=== PATIENT | female | born 1975 | race Caucasian/White ===

== ENCOUNTER 2016-08-31 10:43 | Emergency (ER) | payer SELFPAY ==
[~2016-08-31] VITALS: Ht 149.9 cm; Wt 54.0 kg
[2016-08-31 10:50] VITALS: BP 134/55; PULSE 84; RESP 16; TEMP 97.9; O2SAT 100
[2016-08-31] MEDS ORDERED: SODIUM CHLORIDE 0.9% FLUSH 5 ML FLUSH IVF PRN (11:00)
--- NOTE | 2016-08-31 11:07 | PD ---
HPI Chief Complaint: Abdominal Pain Time Seen by Provider: 11:05 Travel History International Travel<30 days: No Contact w/Intl Traveler<30days: No Traveled to known affect area: No History of Present Illness HPI 41-year-old female with history of endometriosis and chronic pelvic pains, presents to the ER today for several days history of lower abdominal pains. She states that she has been nauseous without vomiting, fevers, diarrhea, urinary symptoms, vaginal discharge, or any other symptoms. She had gone to urgent care and they had palpated a right lower quadrant pain and Center in for further evaluation. Pain is currently a 10 out of 10, worse with movement. Modifying Factors: None Associated Signs & Symptoms: Pelvic pain worse on the right than the left Risk Factors: Endometriosis PFSH Past Medical History ?: Unknown Social History Tobacco Use: No Allergies-Medications (Allergen,Severity, Reaction): Coded Allergies: No Known Allergies (Unverified , 08/31/16) Review of Systems Except as stated in HPI: all other systems reviewed are Neg Physical Exam Narrative GENERAL: Well-nourished, well-developed middle age white female patient in no acute distress. SKIN: Warm and dry. HEAD: Normocephalic. EYES: No scleral icterus. No injection or drainage. NECK: Supple, trachea midline. CARDIOVASCULAR: Regular rate and rhythm without murmurs, gallops, or rubs. RESPIRATORY: Breath sounds equal bilaterally. No accessory muscle use. GASTROINTESTINAL: Abdomen soft, pelvic tenderness with point tenderness in the right pelvic area without guarding or rebound, nondistended. MUSCULOSKELETAL: No cyanosis, or edema. BACK: Nontender without obvious deformity. No CVA tenderness. Data Data Last Documented VS Vital Signs Date Time Temp Pulse Resp B/P Pulse Ox O2 Delivery O2 Flow Rate FiO2 08/31/16 13:17 16 08/31/16 11:43 100 Room Air 08/31/16 10:50 97.9 84 134/55 Orders Urinalysis - C+S If Indicated (08/31/16 10:48) Ed Urine Pregnancytest Poc (08/31/16 10:48) Complete Blood Count With Diff (08/31/16 10:59) Comprehensive Metabolic Panel (08/31/16 10:59) Lipase (08/31/16 10:59) Ct Abd/Pel W Iv Contrast(Rout) (08/31/16 10:59) Iv Access Insert/Monitor (08/31/16 10:59) Ecg Monitoring (08/31/16 10:59) Oximetry (08/31/16 10:59) Sodium Chloride 0.9% Flush (Ns Flush) (08/31/16 11:00) Gc And Chlamydia Pcr (08/31/16 11:45) Wet Prep Profile (08/31/16 11:45) Metronidazole (Flagyl) (08/31/16 11:45) Ceftriaxone Inj (Rocephin Inj) (08/31/16 11:45) Azithromycin Powd Pack (Zithromax Powd P (08/31/16 11:45) Ketorolac Inj (Toradol Inj) (08/31/16 11:45) Iohexol 350 Inj (Omnipaque 350 Inj) (08/31/16 12:15) Labs Laboratory Tests Test 08/31/16 08/31/16 08/31/16 11:00 11:10 11:40 Urine Collection Type CLEAN CATCH Urine Color YELLOW Urine Turbidity CLEAR Urine pH 6.0 Urine Specific Elizabeth 1.003 Urine Protein NEG mg/dL Urine Glucose (UA) NEG mg/dL Urine Ketones NEG mg/dL Urine Occult Blood TRACE Urine Nitrite NEG Urine Bilirubin NEG Urine Leukocyte Esterase NEG Urine RBC 0-3 /hpf Urine Squamous Epithelial 0-5 /hpf Cells Microscopic Urinalysis Comment CULT NOT INDICATED Urine Collection Time 11:00 White Blood Count 6.6 TH/MM3 Red Blood Count 4.90 MIL/MM3 Hemoglobin 14.1 GM/DL Hematocrit 42.0 % Mean Corpuscular Volume 85.8 FL Mean Corpuscular Hemoglobin 28.9 PG Mean Corpuscular Hemoglobin 33.7 % Concent Red Cell Distribution Width 12.0 % Platelet Count 264 TH/MM3 Mean Platelet Volume 8.7 FL Neutrophils (%) (Auto) 71.8 % Lymphocytes (%) (Auto) 19.8 % Monocytes (%) (Auto) 5.5 % Eosinophils (%) (Auto) 0.9 % Basophils (%) (Auto) 2.0 % Neutrophils # (Auto) 4.7 TH/MM3 Lymphocytes # (Auto) 1.3 TH/MM3 Monocytes # (Auto) 0.4 TH/MM3 Eosinophils # (Auto) 0.1 TH/MM3 Basophils # (Auto) 0.1 TH/MM3 CBC Comment DIFF FINAL Differential Comment Sodium Level 143 MEQ/L Potassium Level 4.4 MEQ/L Chloride Level 106 MEQ/L Carbon Dioxide Level 26.8 MEQ/L Anion Gap 10 MEQ/L Blood Urea Nitrogen 11 MG/DL Creatinine 0.74 MG/DL Estimat Glomerular Filtration 87 ML/MIN Rate Random Glucose 87 MG/DL Calcium Level 8.7 MG/DL Total Bilirubin 0.6 MG/DL Aspartate Amino Transf 25 U/L (AST/SGOT) Alanine Aminotransferase 33 U/L (ALT/SGPT) Alkaline Phosphatase 79 U/L Total Protein 7.4 GM/DL Albumin 4.6 GM/DL Lipase 158 U/L Clue Cells (Wet Prep) NONE SEEN Vaginal Trichomonas (Wet Prep) NONE SEEN Vaginal Yeast (Wet Prep) NONE SEEN MDM Medical Decision Making Medical Screen Exam Complete: Yes Emergency Medical Condition: Yes Medical Record Reviewed: Yes Interpretation(s) Laboratory Tests Test 08/31/16 08/31/16 11:00 11:10 Urine Occult Blood TRACE (NEG) Neutrophils (%) (Auto) 71.8 % (16.0-70.0) Estimat Glomerular Filtration 87 ML/MIN (>89) Rate Last 24 hours Impressions Abdomen/Pelvis CT 08/31/16 1059 Signed Impressions: Service Date/Time: Wednesday, August 31, 2016 12:08 - CONCLUSION: 1. Bilateral complex cystic adnexal masses measuring 6.6 x 5.0 x 5.4 cm on the right and 5.4 x 2.5 x 5.5 cm on the left. 2. Enlarged fibroid uterus. 3. Right adrenal nodule measuring 1.2 x 1.6 cm consistent with probable adrenal adenoma. Kevin Dejesus MD Differential Diagnosis Right lower quadrant/pelvic painsacute on chronic abdominal pain versus PID/ cervicitis versus UTI versus endometriosis related pain versus appendicitis versus renal colic Narrative Course Lab work did not indicate any significant metabolic issues or infections. Wet prep is negative. GC is pending. Pelvic exam was equivocal and IV and by mouth antibiotics for possible underlying cervicitis were given as precaution. CT shows bilateral adnexal masses and uterine fibroid. Patient has long- standing history of chronic pelvic pain as well as endometriosis and I suspect that this is related to that diagnosis. However, after discussions with the radiologist reading the film, we cannot determine whether this is a new issue. However, there does not appear to be any signs of acute intra-abdominal process such as appendicitis. At this point, patient does not have an acute abdomen and I suspect that symptoms may be related to her previous diagnosis of chronic pelvic pain secondary to endometriosis. The bilateral adnexal abnormalities will need to be further evaluated with RAD TECH and further ultrasound may be needed to further evaluate these areas on an outpatient basis. My plan would be to give her symptomatic relief or pain and follow-up with primary RAD TECH. Return for any worsening in symptoms as needed. The plan has been discussed with her and she states understanding. Diagnosis Primary Impression: PELVIC AND PERINEAL PAIN Med/Other Pt SpecificInfo: Prescription(s) given Scripts Hydrocodone-Acetaminophen (Lortab)5-325 Mg Tab1-2 Tab PO Q6H PRN (PAIN) #12 TAB Ref 0 Prov:Yuri Avalos MD 08/31/16 Ibuprofen (Motrin Ib)200 Mg Fmp408 Mg PO Q6H PRN (PAIN SCALE 1 TO 10) #20 TAB Ref 0 Prov:Yuri Avalos MD 08/31/16 Disposition: 01 DISCHARGE HOME Condition: Stable Yuri Avalos MD Aug 31, 2016 11:07
[2016-08-31 11:20] LABS: BLOOD, URINE TRACE (NEG); GLUCOSE,URINE NEG (NEG); KETONE, URINE NEG (NEG); NITRITE,URINE NEG (NEG)
[2016-08-31 11:25] LABS: AUTOMATED NEUTROPHIL # 4.7 TH/MM3 (1.8-7.7); BASOPHIL # 0.1 TH/MM3 (0-0.2); EOSINOPHIL # 0.1 TH/MM3 (0-0.4); EOSINOPHIL % 0.9 % (0.0-4.0); HEMO FLAGS DIFF FINAL; LYMPH % 19.8 % (9.0-44.0); LYMPHOCYTE # 1.3 TH/MM3 (1.0-4.8); MEAN CELL VOLUME 85.8 FL (80.0-100.0); MEAN CORPUSCULAR HEMOGLOBIN 28.9 PG (27.0-34.0); MEAN CORPUSCULAR HGB CONC 33.7 % (32.0-36.0); MONO % 5.5 % (0.0-8.0); NEUT % 71.8 % (16.0-70.0); PLATELET COUNT 264 TH/MM3 (150-450); WHITE BLOOD COUNT 6.6 TH/MM3 (4.0-11.0)
[2016-08-31 11:31] LABS: METHOD OF COLLECTION CLEAN CATCH; URINE COLOR YELLOW (YELLW/STRAW)
[2016-08-31 11:32] LABS: COMMENT (UR) CULT NOT INDICATED; CULTURE IF INDICATED CULT NOT INDICATED; RBC, URINE 0-3 /hpf (0-3); SQUAMOUS EPITHELIAL CELL URINE 0-5 /hpf (0-5)
[2016-08-31 11:34] LABS: CHLORIDE 106 MEQ/L (98-107); POTASSIUM 4.4 MEQ/L (3.5-5.1); SODIUM (NA) 143 MEQ/L (136-145)
[2016-08-31 11:38] LABS: ANION GAP 10 MEQ/L (5-15); BICARBONATE 26.8 MEQ/L (21.0-32.0); BLOOD UREA NITROGEN 11 MG/DL (7-18)
[2016-08-31 11:40] LABS: ALT (GPT) 33 U/L (10-53)
[2016-08-31 11:41] LABS: AST (GOT) 25 U/L (15-37); GLOMERULAR FILTRATION RATE 87 ML/MIN (>89)
[2016-08-31 11:42] LABS: TOTAL BILIRUBIN ADULT 0.6 MG/DL (0.2-1.0)
[2016-08-31 11:43] VITALS: RESP 16; O2SAT 100
[2016-08-31 11:43] LABS: ALKALINE PHOSPHATASE 79 U/L (45-117)
[2016-08-31] MEDS ORDERED: cefTRIAXone INJ 250 MG in SODIUM CHLORIDE 0.9% INJ 100 ML IV ONE (11:45)
[2016-08-31] MEDS ORDERED: KETOROLAC TROMETHAMINE 30 MG/ML (IVP) VIAL IV PUSH ONE (11:45)
[2016-08-31] MEDS ORDERED: metroNIDAZOLE 500 MG TAB PO ONE (11:45)
[2016-08-31] MEDS ORDERED: AZITHROMYCIN PWD FOR SUSP 1 GM PACKET PO ONE (11:45)
[2016-08-31] MEDS ORDERED: IOHEXOL 350 MG/ML 10 ML VIAL (for RAD DIAG) IV ONE (12:15)
--- NOTE | 2016-08-31 12:39 | RADHPO ---
EXAM DATE/TIME: 08/31/2016 12:08 [facility] COMPARISON: No previous studies available for comparison. INDICATIONS : Lower abdominal and low back pain x 4 days. Nausea. IV CONTRAST: 80 cc Omnipaque 350 (iohexol) IV ORAL CONTRAST: No oral contrast ingested. RADIATION DOSE: 4.75 CTDIvol (mGy) MEDICAL HISTORY : None SURGICAL HISTORY : None. ENCOUNTER: Initial ACUITY: 4 - 6 days PAIN SCALE: 10/10 LOCATION: Bilateral lower quadrant TECHNIQUE: Volumetric scanning of the abdomen and pelvis was performed. Using automated exposure control and ad justment of the mA and/or kV according to patient size, radiation dose was kept as low as reasonably achievable to obtain optimal diagnostic quality images. FINDINGS: LOWER LUNGS: The visualized lower lungs are clear. LIVER: Homogeneous density without lesion. There is no dilation of the biliary tree. No calcified gallston es. SPLEEN: Normal size without lesion. PANCREAS: Within normal limits. KIDNEYS: Normal in size and shape. There is no mass, stone or hydronephrosis. ADRENAL GLANDS: There is a right adrenal nodule measuring 1.2 x 1.6 cm consistent with probable adenoma. The left adr enal gland is unremarkable. VASCULAR: There is no aortic aneurysm. BOWEL/MESENTERY: The stomach, small bowel, and colon demonstrate no acute abnormality. There is no free intraperitone al air or fluid. ABDOMINAL WALL: Within normal limits. RETROPERITONEUM: There is no lymphadenopathy. BLADDER: No wall thickening or mass. REPRODUCTIVE: Complex cystic adnexal masses are noted bilaterally and measure 6.6 x 5.0 x 5.4 cm on the right and 5 .4 x 2.5 x 5.5 cm on the left. The uterus is enlarged and demonstrates at least one prominent fibroid measuring 5.1 x 4.5 cm. INGUINAL: There is no lymphadenopathy or hernia. MUSCULOSKELETAL: Within normal limits for patient age. CONCLUSION: 1. Bilateral complex cystic adnexal masses measuring 6.6 x 5.0 x 5.4 cm on the right and 5.4 x 2.5 x 5.5 cm on the left. 2. Enlarged fibroid uterus. 3. Right adrenal nodule measuring 1.2 x 1.6 cm consistent with probable adrenal adenoma. Kevin Dejesus MD on August 31, 2016 at 12:31 Board Certified Radiologist. This report was verified electronically.
[2016-08-31] MEDS ORDERED: HYDR-3533 PO (13:23)
[2016-08-31] MEDS ORDERED: MOTR200T4 PO (13:23)
[2016-08-31 13:31] VITALS: BP 107/53; PULSE 78; RESP 18; O2SAT 98
[2016-08-31] MEDS ORDERED: ONDANSETRON HCL 4 MG/2 ML VIAL IV PUSH ONE (13:45)
[2016-08-31 16:29] LABS: CHLAMYDIA PCR NOT DETECTED (NOT DETECT); NEISSERIA PCR NOT DETECTED (NOT DETECT)
[2016-10-03] MEDS ORDERED: CYMB30CA PO (12:33)
== END 2016-08-31 14:36 | disposition home or self-care (01) ==
LOC: PHED 10:43
DX: R10.2 Pelvic and perineal pain (principal); N80.9 Endometriosis, unspecified; D25.9 Leiomyoma of uterus, unspecified
CPT/HCPCS: 74177; 80053; 81001; 83690; 84703; 85025; 87210; 87491; 87591; 96365; 96375; 99284; J0696; J1885; J2405; Q9967

== ENCOUNTER → 2016-10-03 | Outpatient (CLI) | payer OTHER ==
[~2016-10-03] MED LIST: CYMB30CA PO; HYDR-3533 PO; MOTR200T4 PO; PERC5TAB12 PO
[2016-10-03 13:27] LABS: BLOOD, URINE NEG (NEG); GLUCOSE,URINE NEG (NEG); KETONE, URINE NEG (NEG); MUCUS URINE FEW /lpf (OCC); NITRITE,URINE NEG (NEG); SQUAMOUS EPITHELIAL CELL URINE 2 /hpf (0-5); URINE COLOR YELLOW (YELLW/STRAW)
[2016-10-03 13:28] LABS: AUTOMATED NEUTROPHIL # 3.7 TH/MM3 (1.8-7.7); BASOPHIL % 0.7 % (0.0-2.0); EOSINOPHIL # 0.1 TH/MM3 (0-0.4); EOSINOPHIL % 1.2 % (0.0-4.0); HEMATOCRIT 39.8 % (35.0-46.0); HEMO FLAGS DIFF FINAL; LYMPH % 25.4 % (9.0-44.0); LYMPHOCYTE # 1.4 TH/MM3 (1.0-4.8); MEAN CELL VOLUME 86.6 FL (80.0-100.0); MEAN CORPUSCULAR HEMOGLOBIN 29.5 PG (27.0-34.0); MONO % 6.9 % (0.0-8.0); NEUT % 65.8 % (16.0-70.0); PLATELET COUNT 219 TH/MM3 (150-450); RED CELL DISTRIBUTION WIDTH 12.3 % (11.6-17.2); WHITE BLOOD COUNT 5.6 TH/MM3 (4.0-11.0)
[2016-10-03 13:44] LABS: ANION GAP 8 MEQ/L (5-15); BICARBONATE 28.1 MEQ/L (21.0-32.0); BLOOD UREA NITROGEN 12 MG/DL (7-18); CHLORIDE 106 MEQ/L (98-107); GLOMERULAR FILTRATION RATE 83 ML/MIN (>89); GLUCOSE,FASTING 90 MG/DL (74-99); POTASSIUM 4.2 MEQ/L (3.5-5.1); SODIUM (NA) 142 MEQ/L (136-145)
[2016-10-03 13:50] LABS: BHCG SCREEN QUALITATIVE LESS THAN 1 MIU/ML (0-5)
== END ==
LOC: CPRE 12:05
PROVIDERS: ATTEND Obstetrics & Gynecology
DX: Z01.812 Encounter for preprocedural laboratory examination (principal); N80.9 Endometriosis, unspecified; N83.9 Noninflammatory disorder of ovary, fallopian tube and broad ligament, unspecified; N94.10 Unspecified dyspareunia
CPT/HCPCS: 36415; 80048; 81001; 84703; 85025

== ENCOUNTER 2016-10-10 10:33 | Inpatient (IN) | payer OTHER ==
[~2016-10-10] VITALS: Ht 149.9 cm; Wt 54.8 kg
[~2016-10-10 10:33] MED LIST changes: -MOTR200T4 PO; -PERC5TAB12 PO
[2016-10-10 11:03] VITALS: BP 120/77; PULSE 87; RESP 16; TEMP 97.6; O2SAT 100
[2016-10-10] MEDS ORDERED: INSULIN HUMAN REGULAR 1,000 UNITS/10 ML VIAL SQ PRN (11:15)
[2016-10-10] MEDS ORDERED: SODIUM CHLORID 0.9% 500 ML IV SCH (11:15)
[2016-10-10] MEDS: LACTATED RINGER'S 1000 ML IV SCH (11:15)
[2016-10-10] MEDS ORDERED: METOPROLOL TARTRATE 25 MG TAB PO PRN (11:15)
[2016-10-10] MEDS ORDERED: ceFAZolin 1,000 MG/NS 100 ML IV SCH ×2 (11:15)
[2016-10-10] MEDS ORDERED: PROPOFOL 200 MG/20 ML AMP IV ONE (11:49)
[2016-10-10] MEDS ORDERED: ONDANSETRON HCL 4 MG/2 ML VIAL IV PUSH ONE (11:50)
[2016-10-10] MEDS ORDERED: PHENYLEPH/NS 1000 MCG/10 ML SYR IV ONE (11:50)
[2016-10-10] MEDS ORDERED: NORMOSOL R INJ 2,000 ML IV ONE (11:51)
[2016-10-10] MEDS ORDERED: LACTATED RINGER'S 1000 ML INJ 2,000 ML IV ONE (11:51)
[2016-10-10] MEDS ORDERED: METHYLENE BLUE 10 MG/ML VIAL IV ONE (12:00)
[2016-10-10] MEDS ORDERED: NORMOSOL R INJ 1,000 ML IV ONE (12:00)
[2016-10-10] MEDS ORDERED: APREPITANT 40 MG CAP ONE (14:59)
[2016-10-10] MEDS ORDERED: FAMOTIDINE 20 MG/2 ML VIAL ONE (14:59)
[2016-10-10] MEDS ORDERED: ACETAMINOPHEN 1000 MG/100 ML VIAL IV ONE (14:59)
[2016-10-10] MEDS ORDERED: fentaNYL CITRATE 250 MCG/5 ML AMP ONE ×2 (15:38→18:37)
[2016-10-10] MEDS ORDERED: MIDAZOLAM HCL 2 MG/2 ML VIAL ONE (15:38)
[2016-10-10] MEDS ORDERED: SUGAMMADEX SODIUM 200 MG/2 ML VIAL IV PUSH ONE ×2 (15:39)
[2016-10-10] MEDS ORDERED: DEXAMETHASONE SOD PHOS 4 MG/ML VIAL ONE (15:39)
[2016-10-10 20:04] LABS: HEMATOCRIT 24.9 % (35.0-46.0)
[2016-10-10] MEDS: LACTATED RINGER'S 1000 ML INJ 1,000 ML IV SCH (21:30)
[2016-10-10] MEDS ORDERED: SODIUM CHLORIDE 0.9% FLUSH 10 ML FLUSH IV FLUSH PRN (21:45)
[2016-10-10] MEDS ORDERED: diphenhydrAMINE HCL 50 MG/ML VIAL IV PRN (21:45)
[2016-10-10] MEDS ORDERED: IBUPROFEN 600 MG TAB PO PRN (21:45)
[2016-10-10] MEDS ORDERED: oxyCODONE/ACETAMINOPHEN 5 MG/325 MG TAB PO PRN (21:45)
[2016-10-10] MEDS ORDERED: ZOLPIDEM TARTRATE 5 MG TAB PO PRN (21:45)
[2016-10-10] MEDS: ONDANSETRON HCL 4 MG/2 ML VIAL IV PUSH PRN (21:50)
[2016-10-10 21:55] LABS: HEMATOCRIT 29.1 % (35.0-46.0); REVIEW FLAG FINAL
[2016-10-10] MEDS ORDERED: DO NOT ADM ANY ANTICOAGULANT DRUGS XX PRN (22:00)
[2016-10-10] MEDS ORDERED: HYDROmorphone HCL PCA 6 MG/30 ML IV ONE (22:24)
[2016-10-11] MEDS ORDERED: NALOXONE HCL 0.4 MG/ML AMP IV PRN (01:00)
[2016-10-11] MEDS: PCA - TOTAL MG DILAUDID DELIVERED PER SHIFT SCH ×4 (01:00→22:44)
[2016-10-11] MEDS: HYDROmorphone HCL PCA 6 MG/30 ML IV SCH ×2 (01:10→11:11)
[2016-10-11 01:45] LABS: HEMATOCRIT 25.4 % (35.0-46.0); MEAN CELL VOLUME 84.9 FL (80.0-100.0); MEAN CORPUSCULAR HEMOGLOBIN 29.1 PG (27.0-34.0); MEAN CORPUSCULAR HGB CONC 34.3 % (32.0-36.0); PLATELET COUNT 142 TH/MM3 (150-450); RED BLOOD COUNT 2.99 MIL/MM3 (4.00-5.30); RED CELL DISTRIBUTION WIDTH 11.9 % (11.6-17.2); REVIEW FLAG FINAL; WHITE BLOOD COUNT 7.5 TH/MM3 (4.0-11.0)
[2016-10-11 02:40] VITALS: BP 92/61; PULSE 82; RESP 18; TEMP 96.2; O2SAT 97
[2016-10-11] MEDS: LACTATED RINGER'S 1000 ML INJ 1,000 ML IV SCH ×3 (05:11→21:33)
[2016-10-11 05:20] VITALS: BP 99/62; PULSE 75; RESP 16; TEMP 97; O2SAT 95
[2016-10-11] MEDS: ONDANSETRON HCL 4 MG/2 ML VIAL IV PUSH PRN (05:34)
[2016-10-11] MEDS: LACTATED RINGER'S 1000 ML IV SCH (05:36)
[2016-10-11 07:41] LABS: HEMATOCRIT 27.3 % (35.0-46.0); HEMO FLAGS DIFF FINAL; LYMPH % 2.7 % (9.0-44.0); LYMPHOCYTE # 0.4 TH/MM3 (1.0-4.8); MEAN CELL VOLUME 84.8 FL (80.0-100.0); MEAN CORPUSCULAR HGB CONC 34.2 % (32.0-36.0); MONO % 4.8 % (0.0-8.0); NEUT % 92.5 % (16.0-70.0); PLATELET COUNT 180 TH/MM3 (150-450); RED BLOOD COUNT 3.22 MIL/MM3 (4.00-5.30); RED CELL DISTRIBUTION WIDTH 11.9 % (11.6-17.2); WHITE BLOOD COUNT 15.1 TH/MM3 (4.0-11.0)
[2016-10-11 08:00] VITALS: BP 101/63; PULSE 70; RESP 16; TEMP 98; O2SAT 98
[2016-10-11 08:08] LABS: POTASSIUM 4.2 MEQ/L (3.5-5.1)
[2016-10-11] MEDS: SODIUM CHLORIDE 0.9% FLUSH 10 ML FLUSH IV FLUSH SCH ×2 (08:47→21:32)
[2016-10-11] MEDS: DULoxetine HCl DR 30 MG CAP PO SCH (08:47)
--- NOTE | 2016-10-11 11:34 | HHI.DCPOC ---
Discharge Care Plan Diagnosis: (1) Endometriosis (2) Pelvic pain (3) Pelvic adhesions Report Symptoms to Your Doctor -Temperate above 100.5 degrees -Redness, of incision or excessive or foul smelling drainage -Unusual pain or calf pain -Increased vaginal bleeding -Painful or difficulty urinating -Feelings of extreme sadness or anxiety after 2 weeks Goals to Promote Your Health * To prevent worsening of your condition and complications * To maintain your health at the optimal level Directions to Meet Your Goals Take your medications as prescribed Follow your dietary instruction Follow activity as directed Ensure plenty of rest for recovery Drink fluids for hydration Keep your appointments as scheduled Take your immunizations and boosters as scheduled If your symptoms worsen call your PCP, if no PCP go to Urgent Care Center or Emergency Room Smoking is Dangerous to Your Health. Avoid second hand smoke Call the 24-hour crisis hotline for domestic abuse at Delmis Reyes Oct 11, 2016 11:34
[2016-10-11 12:00] VITALS: BP 100/47; PULSE 73; RESP 16; TEMP 97.7; O2SAT 97
[2016-10-11 16:00] VITALS: BP 96/57; PULSE 72; RESP 12; TEMP 97.6; O2SAT 97
--- NOTE | 2016-10-11 17:59 | HHI.PR ---
Subjective Remarks Doing well, pain is well controlled, slightly dizzy when standing Tolerating diet well No chest pain no Sob Objective Vital Signs Vital Signs Date Time Temp Pulse Resp B/P Pulse Ox O2 Delivery O2 Flow Rate FiO2 10/11/16 16:00 97.6 72 12 96/57 97 10/11/16 12:43 18 10/11/16 12:00 97.7 73 16 100/47 97 10/11/16 11:11 16 10/11/16 08:00 98.0 70 16 101/63 98 10/11/16 05:36 18 10/11/16 05:20 97.0 75 16 99/62 95 10/11/16 02:40 96.2 82 18 92/61 97 10/11/16 01:10 14 10/11/16 01:00 15 10/11/16 00:00 97.9 82 12 108/56 99 Nasal Cannula 2 10/10/16 23:00 82 14 113/59 99 Nasal Cannula 2 10/10/16 22:01 97.5 80 15 99 Nasal Cannula 2 10/10/16 22:00 82 15 119/68 99 Nasal Cannula 2 10/10/16 21:45 95 19 121/73 99 Nasal Cannula 3 10/10/16 21:30 104 16 135/78 99 Nasal Cannula 3 10/10/16 21:15 89 14 117/65 99 T-Piece 10 10/10/16 21:12 97.5 88 14 118/63 99 T-Piece 10 I/O 10/10/16 10/10/16 10/10/16 10/11/16 10/11/16 10/11/16 07:00 15:00 23:00 07:00 15:00 23:00 Intake Total 4700 ml 480 ml Output Total 1950 ml 200 ml 550 ml 200 ml Balance 2750 ml -200 ml -70 ml -200 ml Intake Oral 480 ml IV Total 300 ml Other 4400 ml Output Urine Total 550 ml 200 ml 550 ml 200 ml Estimated Blood Loss 700 ml Other 700 ml # Bowel Movements 0 Result Diagram: 10/11/16 0635 10/11/16 0635 Objective Remarks Chest is clear, regular rate and rhythm. Abdomen is soft and non-distended. Incision is clean and dry. Ext no CCE. A/P Assessment and Plan Post Op Day 1 S/P BRADY/BSO, Bilateral ureterolysis. cystoscopy for severe endometriosis Expect an ileus and will advance diet slowly. Start dulcolax supository now til good BM Severe anemia due to large blood loss in the OR Will hold off on transfusion at this time and would not give venofer til the WBCs are normal Will start climera patch tomorrow. Beth Ratliff MD Oct 11, 2016 17:59
[2016-10-11] MEDS ORDERED: PERC5TAB12 PO (18:15)
[2016-10-11 20:00] VITALS: BP 103/59; PULSE 97; RESP 16; TEMP 96.8; O2SAT 94
[2016-10-11] MEDS: BISACODYL 10 MG SUPP RECTAL SCH (21:30)
[2016-10-12] VITALS (7 sets, daily range): BP systolic 109–123; BP diastolic 49–73; PULSE 88–98; RESP 16–19; TEMP 98.2–99.6; O2SAT 94–99
[2016-10-12] MEDS: HYDROmorphone HCL PCA 6 MG/30 ML IV SCH ×3 (01:33→23:32)
[2016-10-12] MEDS: LACTATED RINGER'S 1000 ML INJ 1,000 ML IV SCH ×3 (05:38→21:38)
[2016-10-12] MEDS: PCA - TOTAL MG DILAUDID DELIVERED PER SHIFT SCH ×3 (05:57→22:00)
[2016-10-12 06:57] LABS: AUTOMATED NEUTROPHIL # 8.7 TH/MM3 (1.8-7.7); BASOPHIL % 0.1 % (0.0-2.0); HEMATOCRIT 24.5 % (35.0-46.0); HEMO FLAGS DIFF FINAL; LYMPH % 7.2 % (9.0-44.0); LYMPHOCYTE # 0.7 TH/MM3 (1.0-4.8); MEAN CELL VOLUME 86.2 FL (80.0-100.0); MEAN CORPUSCULAR HEMOGLOBIN 29.7 PG (27.0-34.0); MEAN CORPUSCULAR HGB CONC 34.5 % (32.0-36.0); MONO % 7.9 % (0.0-8.0); NEUT % 84.8 % (16.0-70.0); PLATELET COUNT 155 TH/MM3 (150-450); RED BLOOD COUNT 2.85 MIL/MM3 (4.00-5.30); RED CELL DISTRIBUTION WIDTH 12.3 % (11.6-17.2); WHITE BLOOD COUNT 10.2 TH/MM3 (4.0-11.0)
[2016-10-12] MEDS: SODIUM CHLORIDE 0.9% FLUSH 10 ML FLUSH IV FLUSH SCH ×2 (09:00→21:00)
[2016-10-12] MEDS: BISACODYL 10 MG SUPP RECTAL SCH ×2 (09:14→21:11)
[2016-10-12] MEDS: DULoxetine HCl DR 30 MG CAP PO SCH (09:14)
[2016-10-12] MEDS: DOCUSATE SODIUM 100 MG CAP PO PRN ×2 (09:14→21:11)
--- NOTE | 2016-10-12 11:27 | HHI.PR ---
Subjective Remarks Doing well, pain is well controlled, ambulating in room. Objective Vital Signs Vital Signs Date Time Temp Pulse Resp B/P Pulse Ox O2 Delivery O2 Flow Rate FiO2 10/12/16 09:30 99 Nasal Cannula 3.00 10/12/16 08:00 98.9 93 19 111/56 95 10/12/16 06:37 98.4 93 16 123/73 99 10/12/16 05:57 18 10/12/16 01:33 16 10/12/16 00:00 98.2 88 16 110/49 94 10/11/16 22:44 16 10/11/16 20:26 95 Nasal Cannula 2.00 10/11/16 20:00 96.8 97 16 103/59 94 10/11/16 16:00 97.6 72 12 96/57 97 10/11/16 12:43 18 10/11/16 12:00 97.7 73 16 100/47 97 I/O 10/11/16 10/11/16 10/11/16 10/12/16 10/12/16 10/12/16 07:00 15:00 23:00 07:00 15:00 23:00 Intake Total 480 ml 1615 ml Output Total 200 ml 550 ml 200 ml Balance -200 ml -70 ml 1415 ml Intake Oral 480 ml 240 ml IV Total 1375 ml Output Urine Total 200 ml 550 ml 200 ml # Voids 1 # Bowel Movements 0 0 Result Diagram: 10/12/16 0610 10/11/16 0635 Objective Remarks lungs decreased bs to RLL, regular rate and rhythm. Abdomen is soft and non-distended. Incision is clean and dry. Ext no CCE. A/P Assessment and Plan Post Op Day 2 S/P BRADY/BSO, Bilateral ureterolysis. cystoscopy for severe endometriosis On nasal canula, denies SOB or chest pain, decreased BS to RLL, incentive spirometry ordered anemia, cbc ordered for am No BM as of yet, encouraged fluids, stool softener, ambulation will need to order po pain medication Delmis Reyes Oct 12, 2016 11:27
[2016-10-12] MEDS: oxyCODONE/ACETAMINOPHEN 10 MG/325 MG TAB PO PRN (14:13)
--- NOTE | 2016-10-12 16:29 | HHI.PR ---
Subjective Remarks Appears anxious and mildly painful needed to have [employer] restarted after walking this aim has not yet received climara patch voiding comfortably worried about constipation and anemia unable to sleep last few nights Objective Vital Signs Vital Signs Date Time Temp Pulse Resp B/P Pulse Ox O2 Delivery O2 Flow Rate FiO2 10/12/16 16:00 98.9 98 18 112/54 95 10/12/16 12:52 16 10/12/16 12:45 16 10/12/16 12:14 99.6 97 18 109/56 95 10/12/16 09:30 99 Nasal Cannula 3.00 10/12/16 08:00 98.9 93 19 111/56 95 10/12/16 06:37 98.4 93 16 123/73 99 10/12/16 05:57 18 10/12/16 01:33 16 10/12/16 00:00 98.2 88 16 110/49 94 10/11/16 22:44 16 10/11/16 20:26 95 Nasal Cannula 2.00 10/11/16 20:00 96.8 97 16 103/59 94 I/O 10/11/16 10/11/16 10/11/16 10/12/16 10/12/16 10/12/16 07:00 15:00 23:00 07:00 15:00 23:00 Intake Total 480 ml 1615 ml 620 ml Output Total 200 ml 550 ml 200 ml 700 ml Balance -200 ml -70 ml 1415 ml -80 ml Intake Oral 480 ml 240 ml 620 ml IV Total 1375 ml Output Urine Total 200 ml 550 ml 200 ml 700 ml # Voids 1 # Bowel Movements 0 0 0 Result Diagram: 10/12/16 0610 10/11/16 0635 Objective Remarks lungs decreased bs to RLL, regular rate and rhythm. Abdomen is soft and non-distended. Incision is clean and dry. Ext no CCE. A/P Assessment and Plan Post Op Day 2 S/P BRADY/BSO, Bilateral ureterolysis. cystoscopy for severe endometriosis Will keep on [employer] for now miralax for constipation venifer for anemia alprazolam for anxiety and insomnia Shanthi Richardson MD Oct 12, 2016 16:29
[2016-10-12] MEDS ORDERED: IRON SUCROSE 100 MG/5 ML VIAL IV PUSH ONE (16:30)
[2016-10-12] MEDS ORDERED: ESTRADIOL 0.075 MG/24 HR PATCH TD ONE (18:15)
[2016-10-12] MEDS ORDERED: REMOVE OLD PATCH TD ONE (18:30)
[2016-10-12] MEDS: ALPRAZolam 0.5 MG TAB PO PRN (22:06)
[2016-10-13] VITALS (8 sets, daily range): BP systolic 102–132; BP diastolic 54–60; PULSE 86–115; RESP 17–18; TEMP 97.3–98.6; O2SAT 92–96
[2016-10-13] MEDS: LACTATED RINGER'S 1000 ML INJ 1,000 ML IV SCH ×2 (05:38→13:38)
[2016-10-13] MEDS: PCA - TOTAL MG DILAUDID DELIVERED PER SHIFT SCH ×2 (05:51→15:24)
[2016-10-13 07:16] LABS: AUTOMATED NEUTROPHIL # 6.1 TH/MM3 (1.8-7.7); BASOPHIL % 0.1 % (0.0-2.0); EOSINOPHIL % 0.3 % (0.0-4.0); HEMATOCRIT 21.8 % (35.0-46.0); HEMO FLAGS DIFF FINAL; LYMPH % 12.5 % (9.0-44.0); MEAN CELL VOLUME 85.8 FL (80.0-100.0); MEAN CORPUSCULAR HEMOGLOBIN 29.6 PG (27.0-34.0); MEAN CORPUSCULAR HGB CONC 34.5 % (32.0-36.0); MONO % 9.5 % (0.0-8.0); NEUT % 77.6 % (16.0-70.0); PLATELET COUNT 150 TH/MM3 (150-450); RED BLOOD COUNT 2.54 MIL/MM3 (4.00-5.30); RED CELL DISTRIBUTION WIDTH 12.4 % (11.6-17.2); WHITE BLOOD COUNT 7.8 TH/MM3 (4.0-11.0)
[2016-10-13] MEDS: SODIUM CHLORIDE 0.9% FLUSH 10 ML FLUSH IV FLUSH SCH (08:04)
[2016-10-13] MEDS: BISACODYL 10 MG SUPP RECTAL SCH (08:04)
[2016-10-13] MEDS: DULoxetine HCl DR 30 MG CAP PO SCH (08:08)
[2016-10-13] MEDS ORDERED: POLYETHYLENE GLYCOL 17 GM PKG PO SCH (09:00)
[2016-10-13] MEDS: HYDROmorphone HCL PCA 6 MG/30 ML IV SCH (09:54)
--- NOTE | 2016-10-13 10:58 | HHI.PR ---
Subjective Remarks Describes pain as a little better would like to go home. didn't walk much because SHINGLER was off. Objective Vital Signs Vital Signs Date Time Temp Pulse Resp B/P Pulse Ox O2 Delivery O2 Flow Rate FiO2 10/13/16 09:54 16 10/13/16 09:09 96 Nasal Cannula 2.00 10/13/16 08:00 97.9 94 18 103/54 94 10/13/16 05:51 20 10/13/16 04:00 98.1 105 18 102/59 96 10/13/16 00:54 20 10/13/16 00:00 98.4 97 18 104/54 96 10/12/16 23:32 18 10/12/16 22:00 19 10/12/16 21:00 94 Nasal Cannula 2.00 10/12/16 20:00 99.1 93 17 109/61 94 10/12/16 16:00 98.9 98 18 112/54 95 10/12/16 12:52 16 10/12/16 12:45 16 10/12/16 12:14 99.6 97 18 109/56 95 I/O 10/12/16 10/12/16 10/12/16 10/13/16 10/13/16 10/13/16 07:00 15:00 23:00 07:00 15:00 23:00 Intake Total 620 ml 1092 ml 671 ml Output Total 700 ml 750 ml 200 ml Balance -80 ml 342 ml 471 ml Intake Oral 620 ml 720 ml 480 ml IV Total 372 ml 191 ml Output Urine Total 700 ml 750 ml 200 ml # Voids 5 1 # Bowel Movements 0 1 Result Diagram: 10/13/16 0626 10/11/16 0635 Objective Remarks lungs decreased bs to RLL, regular rate and rhythm. Abdomen is soft and non-distended. no CVAT Incisions are clean and dry. Ext no CCE. A/P Assessment and Plan POD 3 ready for discharge with percocet detailed instructions on activity encouraged to move Shanthi Richardson MD Oct 13, 2016 10:58
[2016-10-13] MEDS: oxyCODONE/ACETAMINOPHEN 10 MG/325 MG TAB PO PRN (11:10)
[2016-10-13] MEDS: ALPRAZolam 0.5 MG TAB PO PRN (14:22)
--- NOTE | 2016-10-14 10:31 | MP ---
cc: Bteh RATLIFF MD DATE OF SURGERY: 10/11/2016 PREOPERATIVE DIAGNOSIS 1. Endometriosis. 2. Dyspareunia 3. Pelvic pain. POSTOPERATIVE DIAGNOSIS 1. Endometriosis. 2. Dyspareunia. 3. Severe adhesions. 4. Severe endometriosis. PROCEDURE Examination under anesthesia, a laparoscopic exam, a supracervical hysterectomy, bilateral salpingo-oophorectomy, bilateral ureterolysis, extensive lysis of adhesions, cauterization of endometriosis and cystoscopy. ANESTHESIA General endotracheal intubation. SURGEON Beth Ratliff MD FINDINGS Examination under anesthesia, the vagina was clean. The cervix had cone changes. The pelvis was frozen. There was no discernible masses. The laparoscopic exam revealed severe endometriosis with a large 4 x 5 cm endometrioma on the left adnexa. The left ovary was plastered to the left pelvic sidewall. The uterus appeared large and posteriorly it was frozen to the sigmoid colon. The right ovary was not visualized. The laparotomy revealed multiple endometriomas in the pelvis, the largest being 4 x 5 cm in the left adnexa. The left ovary was plastered against the left ureter and I was unable to remove the entire ovary, but I did cauterize the shell. The right ovary was plastered into the posterior cul-de-sac next to the sigmoid colon. This ovary shelled out fairly nicely. There was massive scar tissue on the right as well. Her right fallopian tube appeared to be absent, but the entire right adnexa was again plastered against the pelvic sidewall and the posterior cul-de-sac. The uterus was somewhat enlarged, it was impossible to remove the cervix as it was firmly adherent to the sigmoid colon. There were multiple endometriomas and multiple pockets of chocolate cysts. Cystoscopy revealed bilaterally patent ureters. COMPLICATIONS Large blood loss and a very long case, it lasted 4 hours. BLOOD LOSS 600 ccs. FLUIDS Crystalloids. A blood count in the operating theater revealed a hemoglobin of 9, postoperatively it was 9.9. Will hold off on transfusion for now. PROCEDURE IN DETAIL The patient was taken to the operating room, identified by name band and verbally. She was given a general anesthetic, prepped and draped in the usual sterile fashion for laparoscopic surgery. Time-out was taken, all equipment and instruments were readied and a Weaver catheter was inserted. An examination under anesthesia was carried out at this time. It was a frozen pelvis. However, we had discussed doing a laparoscopic exam first and the small chance of that, it was not as bad as the other physician had told her many years ago. A weighted speculum was placed into the vagina. Anterior lip of the cervix was grasped with single-tooth tenaculum. A Hulka clamp was placed. Attention was turned to the umbilicus. A small incision was made and with a 5 mm trocar the abdomen was entered and 3 liters of CO2 was delivered to create a pneumoperitoneum. It appeared that the pelvis was frozen. We felt about attempting this laparoscopically, we made a second puncture in the left lower quadrant under direct vision without difficulty and the chocolate cyst on the left ruptured at this time trying to manipulate around. At this time we realize that both pelvic sidewalls, the posterior cul-de-sac were totally socked in with endometriosis. We abandoned the idea of a laparoscopic surgery. We repositioned the patient and prepared her for abdominal hysterectomy. A generous Pfannenstiel incision was made and carried down to the fascia. Fascia was taken off the rectus muscle by blunt and sharp dissection and the abdomen was entered under direct vision without difficulty and the incision was extended with care to avoid the urinary bladder. At this point exploratory laparotomy was carried out. The upper abdomen was normal and there was no adhesions or endometriosis in this area. The liver, kidneys, gallbladder were all normal to palpation. The bowels were then packed back with a wet lap and we began our journey to dissect this uterus and adnexa out. We began with the left round ligament where the large endometrioma was. We took this with a 0 Vicryl pop off and opened up the leaf. At this point we went to find the infundibulopelvic ligament which was also plastered against the sidewall and very close to the ureter. We went up to nearly the pelvic brim and went retroperitoneal. We dissected the ovarian artery and vein free from the ureter. I had to dissect this ureter down almost entirely to the bladder because of the massive adhesions and retroperitoneal fibrosis present. Once we had identified the ureter. We took the infundibulopelvic ligament down with a few Tasneem's free tie and stick tie. From here we worked down to try to shell out that ovary. This took inordinate amount of time because it was socked in. At this time hemostasis was okay. She did have a lot of oozing throughout the entire case accounting for the large blood loss. The right fallopian tube was absent. We started work on the right round ligament and opened up that leaf as well and created a little bladder flap and began trying to dissect out the uterine vessels. Again, this was nearly impossible because of the large amount of endometriosis present. We attempted to find the right ovary. It was socked in the posterior cul-de-sac and right pelvic sidewall. Again, we went retroperitoneal, dissected the ureter free. Once the ureter was free we took the peritoneum and the entire ovary, shelled out quite nicely and took small bleeders with the Bovie. Next order of business was to take down the broad ligament on the left, took this down with Tasneem's and the Bovie and stick ties until the level of the internal cervical os. Once we had freed that up it was apparent that the cervix was firmly adherent to the sigmoid colon. The posterior uterus was dissected free from the sigmoid colon without much difficulty but when we got to the cervix the adhesions were so dense, there was a complex of ovary, cervix and uterus, all very close together. Again, I could not remove that entire ovary and just the shell was left which was oozing somewhat. We coagulated this area to prevent any further endometriosis. At this time we realized we would have to do a supracervical hysterectomy and the uterus was transected away from the cervix with the Bovie cauterization with excellent results. The endocervical canal was cauterized extensively to prevent any further bleeding. At this point there was quite a bit of oozing and we cauterized the areas of oozing and endometriosis. The left ureter did look a little bit distended. We had performed quite a bit of dissection around there and I was concerned that when we took the uterine vessels on the left we may have ligated the ureter, so I called for a cystoscopy tray. The pelvis was irrigated with a large amount of fluids, at this time, all bleeders were coagulated. There was still quite a bit oozing and some Avitene was placed in the pelvis. Over the Avitene then the bleeding looked good and a piece of intercede to prevent future adhesions in this area was placed over the Avitene. At this point the bowels were released, the self-retaining retractor was removed and the rectus muscles reapproximated with 0-Vicryl in a running fashion. The fascia was repaired with 0 Vicryl in a running fashion. Subcu was repaired with 3-0 Vicryl and the skin was repaired with a 4-0 Monocryl including the laparoscopic scars. At this point I went out and spoke to the family about the difficulty of the case and the need to perform cystoscopy and possibly more surgery if one of the ureters was damaged. We repositioned the patient for cystoscopic exam, disconnected the Weaver and placed 250 ccs of saline into the bladder and inserted the 30 degree cystoscope. Both ureters were clearly patent with beautiful effusion from each ureteral orifice. At this point I was totally convinced that was all patent and the procedure was terminated. She did have a hemoglobin drawn at the end of the case and it revealed a hemoglobin of 8.8. We will get one in the recovery room as well. She tolerated the procedure well. She was stable throughout the entire procedure. She will be admitted and go to the floor. R. MD CARLITA Ledezma/YINA /7:00 AM /9:36 AM
== END 2016-10-13 15:48 | disposition home or self-care (01) | DRG 742 ==
LOC: HSDC 10:33 → HOCA 10-11 02:45
PROVIDERS: ADMIT Obstetrics & Gynecology; ATTEND Obstetrics & Gynecology
PROC: 0UT90ZZ Resection of Uterus, Open Approach (ICD-10-PCS; principal; 2016-10-11)
PROC: 0UB20ZZ Excision of Bilateral Ovaries, Open Approach (ICD-10-PCS; 2016-10-11)
PROC: 0UT60ZZ Resection of Left Fallopian Tube, Open Approach (ICD-10-PCS; 2016-10-11)
PROC: 0UJD4ZZ Inspection of Uterus and Cervix, Percutaneous Endoscopic Approach (ICD-10-PCS; 2016-10-11)
PROC: 0DNW0ZZ Release Peritoneum, Open Approach (ICD-10-PCS; 2016-10-11)
PROC: 0TJB8ZZ Inspection of Bladder, Via Natural or Artificial Opening Endoscopic (ICD-10-PCS; 2016-10-11)
DX: N80.0 Endometriosis of uterus (principal); D62 Acute posthemorrhagic anemia; N80.1 Endometriosis of ovary; F32.9 Major depressive disorder, single episode, unspecified; N80.3 Endometriosis of pelvic peritoneum; F41.9 Anxiety disorder, unspecified; N94.10 Unspecified dyspareunia; N73.6 Female pelvic peritoneal adhesions (postinfective); Z53.31 Laparoscopic surgical procedure converted to open procedure
CPT/HCPCS: 82565; 84132; 85014; 85018; 85025; 85027; 86850; 86900; 86901; 86920; 88307; 94150; C1765; J0131; J1100; J1170; J1756; J2250; J2370; J2405; J3010; J7120; J8501